=== PATIENT | male | born 1950 | race Caucasian/White ===

== ENCOUNTER 2017-07-13 18:36 | Inpatient (IN) | payer MEDICARE ==
[~2017-07-13] VITALS: Ht 182.9 cm; Wt 88.5 kg
--- OUTSIDE RECORDS SUMMARY | ~2017-07-13 | XMS | Clinical Summary ---
Demographics + + + | Address | [address] | | | [place] [address] | + + + | Home Phone | | + + + | Preferred Language | Unknown | + + + | Marital Status | Single | + + + | Sabianist Affiliation | CAT | + + + | Race | Unknown | + + + | Ethnic Group | or | + + + Author + + + | Author | [facility] | + + + | Organization | [facility] | + + + | Address | Unknown | + + + | Phone | Unavailable | + + + Support + + +---------+ + | Name | Relationship | Address | Phone | + + +---------+ + | DAX SIMS | ECON | Unknown | | + + +---------+ + Care Team Providers + +------+ + | Care Registered Nurse Maternal Child Name | Role | Phone | + +------+ + PP | Unavailable | + +------+ + Source Comments CASSIE is fully live on both [facility] and [facility] Allergies No Known Allergies Current Medications No known medications Active Problems + + + | Problem | Noted Date | + + + | Chronic hepatitis C virus infection (HCC) | 03/13/2007 | + + + + + | Overview: ICD10 | + + Social History + +-------+ +--------+------+ | Tobacco Use | Types | Packs/Day | Years | Date | | | | | Used | | + +-------+ +--------+------+ | Current Every Day | | | | | | Smoker | | | | | + +-------+ +--------+------+ + + + | Sex Assigned at | Date Recorded | | | | + + + | Not on file | | + + + Last Filed Vital Signs + + + + | Vital Sign | Reading | Time Taken | + + + + | Blood Pressure | 126/71 | 09/02/2007 10:38 AM PDT | + + + + | Pulse | 77 | 09/02/2007 10:38 AM PDT | + + + + | Temperature | 36.6 C (97.8 F) | 09/02/2007 10:38 AM PDT | + + + + | Respiratory Rate | 16 | 09/02/2007 10:38 AM PDT | + + + + | Oxygen Saturation | - | - | + + + + | Inhaled Oxygen | - | - | | Concentration | | | + + + + | Weight | 82.9 kg (182 lb 11.2 | 09/02/2007 10:38 AM PDT | | | oz) | | + + + + | Height | 180.3 cm (5' 11") | 08/29/2006 9:20 AM PDT | + + + + | Body Mass Index | 25.48 | 09/02/2007 10:38 AM PDT | + + + + Plan of Treatment + + + + + | Health Maintenance | Due Date | Last Done | Comments | + + + + + | INFLUENZA VACCINE | | | | | (FLU SHOT) | 7 | | | + + + + + Results Not on filefrom Last 3 Months
--- OUTSIDE RECORDS SUMMARY | ~2017-07-13 | XMS | Clinical Summary ---
Demographics + + + | Address | [address] | | | [place] [address] | + + + | Home Phone | | + + + | Preferred Language | Unknown | + + + | Marital Status | Single | + + + | Yazidism Affiliation | CAT | + + + [...] Team Providers + +------+ + | Care Ore Tester Name | Role | Phone | + +------+ + PP | Unavailable | + +------+ + Source Comments CASSIE is fully live on both [facility] and [facility] Allergies No Known Allergies Current Medications No [...]
--- OUTSIDE RECORDS SUMMARY | ~2017-07-13 | XMS | Clinical Summary ---
Demographics + + + | Address | [address] | | | [place] [address] | + + + | Home Phone | | + + + | Preferred Language | Unknown | + + + | Marital Status | Single | + + + | Scientologist Affiliation | CAT | + + + [...] Team Providers + +------+ + | Care Drug Enforcement Administration Agent Name | Role | Phone | + +------+ + PP | Unavailable | + +------+ + Source Comments CASSIE is fully live on both [facility] and [facility] InPatient.[facility] Allergies No Known Allergies Current Medications [...]
[~2017-07-13 18:36] MED LIST: DILTIAZEM ER240 MG PO; LISINOPRIL10 MG PO; XARELTO20 MG PO
--- NOTE | 2017-07-14 14:56 | EKG ---
[facility] [address] [facility] [facility] [place] [address] Signed Atrial flutter with 2 to 1 block Right bundle branch block Septal infarct , age undetermined T wave abnormality, consider inferior ischemia Abnormal ECG No previous ECGs available Confirmed by ALLEGRA SAMUEL MD ([id number]) on 07/14/2017 2:56:02 PM Electronically Signed By: ALLEGRA SAMUEL MD 07/14/17 1456 PATIENT NAME: BRIAN PALMER Electrocardiogram DATE OF : 50 PHYSICIAN: ALLEGRA SAMUEL MD REPORT #: [id number] REPORT IS CONFIDENTIAL AND NOT TO BE RELEASED WITHOUT AUTHORIZATION
--- NOTE | 2017-07-14 14:57 | EKG ---
[facility] [address] [place] [address] Signed Atrial flutter with 4:1 AV conduction Right bundle branch block Septal infarct (cited on or before 13-JUL-2017) T wave abnormality, consider lateral ischemia Abnormal ECG When compared with ECG of 13-JUL-2017 18:45, (Unconfirmed) Atrial flutter is in 4:1 conduction compared to 2:1 conduction in the previous EKGs. Confirmed by ALLEGRA SAMUEL MD ([id number]) on 07/14/2017 2:57:25 PM Electronically Signed By: ALLEGRA SAMUEL MD 07/14/17 1457 PATIENT NAME: BRIAN PALMER Electrocardiogram DATE OF : 50 PHYSICIAN: ALLEGRA SAMUEL MD REPORT #: [id number] REPORT IS CONFIDENTIAL AND NOT TO BE RELEASED WITHOUT AUTHORIZATION
== END 2017-07-14 00:55 | disposition short-term general hospital (02) | DRG 291 ==
LOC: ED 18:36 → CCU 22:02
PROVIDERS: ADMIT Internal Medicine
DX: I11.0 Hypertensive heart disease with heart failure (principal); R57.0 Cardiogenic shock; I48.92 Unspecified atrial flutter; I50.31 Acute diastolic (congestive) heart failure; Z87.891 Personal history of nicotine dependence; Z79.899 Other long term (current) drug therapy
CPT/HCPCS: 71045; 74177; 80053; 83735; 83880; 84484; 85025; 93005; 93010; J1265; J2405; J7030; Q9967

== ENCOUNTER 2019-07-04 10:29 | Inpatient (IN) | payer MEDICARE ==
[~2019-07-04] VITALS: Ht 182.9 cm; Wt 90.3 kg
--- OUTSIDE RECORDS SUMMARY | 2019-07-04 10:32 | XMS ---
PreManage Notification: BRIAN PALMER Security Director Patient Financial Services Events No recent Security Events currently on file CRITERIA MET - MYRTLE CARE PROVIDERS CARSON VELÁSQUEZ Internal Medicine: Cardiovascular 01/30/2018-Current [facility] Disease PHONE: [phone] Dima Cardenas MD PHONE: Unknown Josh has no Care Guidelines for this patient. EConor VISIT COUNT (12 MO.) Beatriz Paul TOTAL 1 NOTE: Visits indicate total known visits. ED/UCC VISIT TRACKING (12 MO.) 07/04/2019 10:30 EVELINA Hernandez OR TYPE: Emergency COMPLAINT: - SOB, PAIN INPATIENT VISIT TRACKING (12 MO.) No inpatient visits to display in this time frame [email or web address]
[2019-07-04] MEDS ORDERED: HYDROCODON-ACE1 EA10 PO (10:48)
[2019-07-04] MEDS ORDERED: METOPROLOL SUCC50 MG PO (10:48)
[2019-07-04] MEDS ORDERED: DICLOFENAC SODI75 MG PO (10:48)
[2019-07-04] MEDS ORDERED: ZANAFLEX4 MG PO (10:49)
[2019-07-04] MEDS ORDERED: ELIQUIS5 MG PO (10:49)
--- NOTE | 2019-07-04 14:38 | NUR ---
Pt arrived to CCU w/pint of blood infusing. Pt able to stand-up transfer w/assistance from ER bed to CCU bed, Pt reported dizziness while standing. Pt is alert/orientated. CCU intake completed. Daughter is at bedside. Pt requested jello, is on a clear liquid diet. Appeared to tolerated jello well. Guardrails are up, call light within reach, will continue to monitor.
--- NOTE | 2019-07-04 16:50 | NUR ---
PATIENT 2ND UNIT OF PRBC COMPELTED. WILL START NEXT BAG SHORTLY. PATIENT STATES "I FEEL SO MUCH BETTER AT THIS TIME". PATIENTS CHEECKS HAVE MORE PINK NOTED. PATIENTS DAUGHTER HEADED HOME AT THIS TIME. WILL CONTINUE TO CLOSELY MONITOR.
--- NOTE | 2019-07-04 16:50 | NUR ---
1 UNIT PRBC INFUSED. VSS. PT DENIES ANY S/S OF ADVERSE REACTION. RESTS IN BED. IV SITE WNL. NS INFUSED TO CLEAR LINE.
--- NOTE | 2019-07-04 17:20 | NUR ---
UNIT #3 PRBC STARTED AT 65 ML/HR. PRE VSS. IV SITE WNL. PT C/O HUNGER, CLEAR LIQUIDS ORDERED. THIS RN REMAINS WITH PT WHILE DURING BEGINNING OF PRBC INFUSION. PT DOZES AND WAKES TO TV.
--- NOTE | 2019-07-04 17:34 | NUR ---
PT SITS UP IN HIGH FOWLERS TO DRINK CLEAR LIQUIDS.
--- NOTE | 2019-07-04 17:45 | NUR ---
VSS. PT DENIES ANY S/S OF ADVERSE REACTION. IV SITE WNL. PRBC INFUSION INCREASED TO 200 ML/HR.
--- NOTE | 2019-07-04 19:15 | NUR ---
PATIENT 3RD UNIT ALMOST FINISHED INFUSING. REPORT GIVEN TO NONPROFIT DIRECTOR RN. NO OTHER NEEDS AT THIS TIME. PATIENT HAD A CLEAR LIQUID TRAY AND TOLERATED WELL. MD OLIVAREZ IN AND DISCUSSED PLAN OF CARE. WILL CONTINUE TO CLOSELY MONITOR. CALL LIGHT IN REACH.
--- NOTE | 2019-07-04 19:57 | NUR ---
THIRD BLOOD TRANSFUSION FINISHED AT 1939. V/S ARE WDL, PT HOWEVER DOES HAVE A TEMP OF 99.2 F AT THIS TIME, WILL CONTINUE TO MONITOR. ALL LOBES ARE CLEAR AT THIS TIME, PT DENIES PAIN, ABD SOUNDS ARE PRESENT, ABD IS SOFT AND NON-TENDER TO TOUCH. NO PERIPHERAL EDEMA NOTED, CAP REFILL IS < 2SEC. PT IS STILL DUE TO VOID AT THIS TIME. WILL CONTINUE TO MONITOR.
--- NOTE | 2019-07-04 20:35 | NUR ---
LAB CALLED WITH CRITICAL VALUE FOR H&H. HG 6.5, HTC 20.9 AT THIS TIME. MD ANDERSON WAS CALLED AT 2031 AND ORDERS FOR 1 UNIT OF BLOOD WAS RECEIVED. ALSO, ORDERS FOR 2 UINTS OF BLOOD AHEAD WAS RECEIVED AND 20MG IV LASIX ONCE WAS ALSO ORDERED.
--- NOTE | 2019-07-04 21:39 | NUR ---
PT AT THIS TIME IS SLEEPIG. BLOOD UNIT HAS NOT BEEN STARTED YET. V/S ARE WDL.
--- NOTE | 2019-07-05 00:30 | NUR ---
4TH UNIT OF BLOOD FINISHED AT 0009. V/S ARE WDL. ALL LOBES ARE STILL CLEAR AND PT DENIED SOB. PT HAS SOME NECK PAIN PRESENT AT THIS TIME BUT DID NOT WANT PAIN MEDICATION. NO OTHER CHANGES NOTED SO FAR. PT NPO SINCE 0000. PT NOW ON 1L O2 NC. WILL HOLD OF ON THE ORDERED 20MG IV LASIX DUE TO BP'S PER MD ANDERSON.
--- NOTE | 2019-07-05 02:05 | NUR ---
PT AT THIS TIME IS SLEEPING. NO NEW CONCERNS NOTED.
--- NOTE | 2019-07-05 04:00 | NUR ---
PT STATED THAT HE IS IN PAIN BUT REFUSED ANY PO PAIN MEDICATIONS AT THIS TIME. PT IS ALSO ON ROOM AIR AND O2 SATS ARE >95%. ABD SOUNDS ARE PRESENT BUT IT SEEMS THAT HIS ABDOMEN IS SOMEWHAT DISTENDED AND FIRMER NOW. PT HOWEVER DENIES ABD PAIN ALL TOGETHER. TEMP IS 99.2 F, BP'S ARE STILL SOFT, ALL OTHER V/S ARE WDL. WILL CONTINUE TO MONITOR.
--- NOTE | 2019-07-05 06:06 | NUR ---
PT AT THIS TIME IS STILL SLEEPING. BP'S ARE BETTER AT THIS TIME. PT IS STILL ON RA WITH O2 SATS >95%. NO NEW CONCERNS NOTED AT THIS TIME.
--- NOTE | 2019-07-05 07:30 | NUR ---
PATIENT SHIFT REPORT RECIEVED FROM MANUFACTURING ENGINEERING TECHNOLOGIST RN. PATIENT RESTING IN BED. CALL LIGHT IN REACH. PATIENT HAS BEEN NPO SINCE MIDNINGHT. WILL CONTINUE TO CLOSELY MONITOR.
--- NOTE | 2019-07-05 07:35 | EKG ---
[facility] [address] [facility] [place] [address] Signed Sinus rhythm with marked sinus arrhythmia with frequent premature ventricular complexes Right bundle branch block Abnormal ECG When compared with ECG of 13-JUL-2017 23:33, Sinus rhythm has replaced Atrial flutter Criteria for Septal infarct are no longer present Nonspecific T wave abnormality, improved in Inferior leads T wave inversion now evident in Anterior leads T wave inversion no longer evident in Lateral leads Confirmed by SIXTO ANDERSON MD ([id number]) on 07/05/2019 7:35:28 AM Electronically Signed By: SIXTO ANDERSON MD 07/05/19 0735 PATIENT NAME: BRIAN PALMER Electrocardiogram DATE OF : 50 PHYSICIAN: SIXTO ANDERSON MD REPORT #: [id number] REPORT IS CONFIDENTIAL AND NOT TO BE RELEASED WITHOUT AUTHORIZATION
--- NOTE | 2019-07-05 09:30 | NUR ---
PATIENT UPDATED ON CURRENT PLAN OF CARE. PATIENT RESTING IN BED. CONSENT FOR SURGERY ON CHART. PATIENT ASSESSMENT COMPLETED. PATIENT STATES "I FEEL MUCH BETTER AT THIS TIME, BUT HUNGRY. WILL CONTINUE TO CLOSELY MONITOR.
--- NOTE | 2019-07-05 10:00 | NUR ---
PATIENT RESTING I NBED. RASCH IN TO SEE PATIENT THIS AM. ALL QUESTIONS ANSWERED. PATIENT IS AGREEABLE TO PLAN OF CARE. WILL CONTINUE TO CLOSELY MONITOR.
--- NOTE | 2019-07-05 11:34 | NUR ---
PATIENT RESTING IN BED. FAMILY ARRIVED AND UPDATED ABOUT PLAN OF CARE. FAMILY GOING TO GO DOWN AND EAT. NO OTHER NEEDS AT THIS TIME. PATIENT CONTINUES TO DENY PAIN.
--- NOTE | 2019-07-05 12:15 | NUR ---
patient gone with surgical staff to procedure. bedding cleaned. no other needs at this time.
--- NOTE | 2019-07-05 13:12 | NUR ---
patient arrived back o ccu room 128. patient transitioned to room air and vitals sable. family at the bedside. patient denies any other needs at this time. will continue to clsoely monitor.
--- NOTE | 2019-07-05 13:15 | NUR ---
PATIENT HAD AN INCONTINENT EPISODE OF BM. PATIENT CLEANED AND NEW UNDERWEAR IN PLACE. PATIENT DENIES ANY FURTHER NEEDS AT THIS TIME. WILL CONTINUE TO CLOSELY MONITOR.
--- NOTE | 2019-07-05 15:51 | NUR ---
PATIENT ASSISTED UP TO THE BATHROOM AND BACK TO THE CHAIR. PATIENT ATE 100% OF HIS FOOD AND TOLERATED WELL. CALL LIGHT ON LAP. EDUCATED TO CALL STAFF WHEN HE NEEDS TO GET UP OR IF HE NEEDS ANY ASSISTANCE. NO OTHER NEEDS AT THIS ITME. DINNER ORDERED. WILL CONTINUE TO CATHY MONITOR.
--- NOTE | 2019-07-05 17:00 | NUR ---
PATIENT ASSISTED BACK TO BED PATIENT STOOD AND TOELRATED WELL. NO DIZZINESS NOTED. PATIENT DINNER ORDERED. NO ABD PAIN. PATIET HAD LOOSE BM NO BLOOD NOTED. LIGHT BROWN IN COLOR. WILL CONTINUE TO CLOSELY MONITOR.
--- NOTE | 2019-07-05 20:15 | NUR ---
PT TONIGHT SEEMS MUCH BETTER OVERALL. ALL LOBES ARE CLEAR, ABD IS SOFT NON-TENDER AND BOWEL SOUNDS ARE ACTIVE. NO PERIPHERAL EDEMA NOTED. V/S ARE WDL. PT DOES HAVE A SLIGHT TEMP OF 99.2 F ORAL.
--- NOTE | 2019-07-05 22:06 | NUR ---
PT IS SLEEPING AT THIS TIME. V/S ARE WDL.
--- NOTE | 2019-07-06 01:13 | NUR ---
NO CHANGES WERE NOTED WITH SECOND ASSESSMENT. PT DENIES PAIN AND SOB. NO PERIPHERAL EDEMA NOTED, V/S ARE WDL. NO NEW CONCERNS NOTED.
--- NOTE | 2019-07-06 03:27 | NUR ---
PT IS SLEEPING. NO NEW CONCERNS NOTED AT THIS TIME.
--- NOTE | 2019-07-06 04:15 | NUR ---
V/S ARE WDL, PT DENIES PAIN, ALL LOBES ARE CLEAR, NO PERIPHERAL EDEMA NOTED, ABD IS UNCHANGED. NO NEW CONCERNS NOTED.
--- NOTE | 2019-07-06 06:30 | NUR ---
V/S ARE WDL, URINE OUTPUT IS ADEQUATE. PT IS IN GOOD SPIRITS. PT DENIES PAIN. NO NEW CONCERNS NOTED
--- NOTE | 2019-07-06 07:30 | NUR ---
PATIENT SHIFT REPORT RECIEVED FROM COMPLIANCE ATTORNEY RN. PATIENT RESTING IN BED AT THIS TIME. CALL LIGHT IN REACH. WILL CONTINUE TO CLOSELY MONTIOR.
[2019-07-06] MEDS ORDERED: FERROUS SULFAT325 MG PO (09:46)
[2019-07-06] MEDS ORDERED: SUCRALFATE1 GM PO (09:47)
[2019-07-06] MEDS ORDERED: PANTOPRAZOLE SO40 MG PO (09:47)
--- NOTE | 2019-07-06 10:00 | NUR ---
PATIENT RESTING IN BED. BREAKFAST FINISHED. MD ANDERSON WILL BE IN TO SEE PATIENT. WILL CONTINUE TO CLOSELY MONITOR.
--- NOTE | 2019-07-06 11:00 | NUR ---
PATIENT OKAYED TO DISCHARGE HOME. PATIENT AND FAMILY AGREEABLE TO PLAN OF CARE. WILL WAIT FOR MD OLIVAREZ TO SEE PATIENT PRIOR TO DISCHARGE FOR HIS PLAN OF CARE TO FOLLOW-UP. PER MD ANDERSON ASSIST PATIENT UP AND WALK WITH PATIENT TO ENSURE PATIENT DOES NOT GET DIZZY WITH AMBULATION. PATIENT WALKED AROUND THE MEDICAL UNIT WITH STAFF MEMBER AND PATIENT TOLERATED WELL. PATIENT DENIED SOB AND DIZZINESS. PATIENTS DAUGHTER AGREEABLE TO PLAB OF CARE. WILL CONTINUE TO CLSOELY MONITOR.
--- NOTE | 2019-07-06 12:00 | NUR ---
MD OLIVAREZ IN AND SEEN PATIENT. PATIENT WILL CALL TOMORROW TO MAKE A FOLLOW-UP IN ABOUT A MONTH. WILL FINISH PAPERWORK AND SEND PATIENT HOME WITH HIS DAUGHTER.
[2019-07-06] MEDS ORDERED: ATORVASTATIN CA80 MG PO (12:01)
[2019-07-06] MEDS ORDERED: ENTRESTO 49 MG1 EACH PO (12:03)
--- NOTE | 2019-07-06 12:30 | NUR ---
REVIEWED DISCHARGE INSTRUCTIONS WITH PATIENT AND HIS DAUGHTER DAX. INSTRUCTED TO CALL SUNDAY TO MAKE FOLLOW-UP APPOINTMENTS. PATIENT NEEDS TO CONTACT HIS [facility] MD AND FOLLOW-UP REGUARDING HIS UPCOMING PROCEDURE AND WHEN TO RESTART BLOOD THINNERS. CONTACT HIS PRIMARY MD TO FOLLOW-UP REGUARDING HIS CURRENT HOSPITALIZATION. ALSO, CONTACT MD [place] OFFICE TO SCHEDULE FOLLOW-UP IN 1 MONTH. PER MD MONICA PROVIDE PATIENT WITH CASE MANAGEMENT NUMBER TO HELP ARRANGE A NEW PRIMARY CARE PHYSICAIAN PER FAMILIES REQUEST TO HAVE AN MD IN OUR COMMUNITY. DCD PATIENTS IVS. ALL BELONGINGS SENT WITH PATIENT. ALL QUESTIONS ANSWERED. NO OTHER NEEDS AT SI TIME. PATIENT TAKEN TO THE FRONT ENTRANCE VIA WHEELCHAIR BY RICH BLEVINS.
--- NOTE | 2019-07-07 09:22 | CONS ---
[facility] [address] [place], [place] [address] Signed DATE OF CONSULTATION: 07/04/2019 CONSULTING PHYSICIANS: 1. Dr. Isaac. 2. Dr. Singletary. 3. Dr. Kirit Olivarez. PROBLEM: Profound anemia, heme-positive stool. HISTORY OF PRESENT ILLNESS: This 69-year-old white man is a patient of Dr. Payne in the [facility], though he lives in [place]. He was seen in the emergency room at approximately 10:[address] Bryant Shaw and admitted by Dr. Isaac having been found to have shortness of breath that has been chronic and recently associated dizziness and weakness. He was found to have profound anemia with a hematocrit of only 16.1 with a hemoglobin of 4.6. His platelet count is normal at 215,000. He was admitted for further evaluation and care on the basis of probable gastrointestinal bleeding. Notably, the patient has had no gross blood per rectum or hematemesis. He denies hematuria as well. The patient was recently started on nonsteroidal medication including diclofenac. He takes additionally hydrocodone, Tylenol, Zanaflex, and Eliquis. He also takes metoprolol daily as well as Entresto, bupropion, and atorvastatin as well as spironolactone and digoxin. He has no known drug allergies. The patient is considered to have systolic heart failure as well though has high functioning generally speaking. He does have a history of supraventricular tachycardia and atrial fibrillation, though he presents in normal sinus rhythm at this time. Chronic neck pain is the reason for his pain medications. SOCIAL HISTORY: He is unmarried. He does have a female acquaintance, however. REVIEW OF SYSTEMS: He denies any chest pain or shortness of breath. He has had no dysphagia or dysuria. Denies family history of colon cancer, stomach cancer, or esophageal cancer. Notably, Electronically Signed By: KIRIT OLIVAREZ MD 07/07/19 0922 PATIENT NAME: BRIAN PALMER CONSULTATION DATE OF : 50 REPORT #: [id number] PHYSICIAN: KIRIT OLIVAREZ MD PCP: SURJIT XIE REPORT IS CONFIDENTIAL AND NOT TO BE RELEASED WITHOUT AUTHORIZATION [facility] [address] [place], [place] [address] Signed he has never undergone colonoscopy. He is not known to have history of ulcer. PHYSICAL EXAMINATION: GENERAL: This is a pleasant white man, who is sedate in his overall demeanor. VITAL SIGNS: His temperature is 98, pulse 68, blood pressure 124/53, and O2 saturation is 100% on 2 L nasal cannula oxygen. NECK: Shows no thyromegaly or cervical adenopathy. Trachea is midline. CHEST: Clear. There is no wheeze or rhonchi. HEART: Regular without murmur. ABDOMEN: Obese, but soft and nontender. EXTREMITIES: Show no clubbing, cyanosis, or edema. CURRENT LABORATORY STUDIES: Show white count of 12.8, hematocrit of 16.1, now undergoing transfusion, and a platelet count of 215,000. Coag studies show a proTime of 16.3 with an INR of 1.3, D-dimer of 419 (unreliable based on Entresto medication), and a PTT of 37.3. Urinalysis is pending. His creatinine is elevated at 1.32. Iron is 21, ferritin 4.83. BNP is 1290. Troponin is less than 0.01. ASSESSMENT: The patient has anemia that is likely chronic to get as low as it has been with relatively minor symptoms. This may represent a slow gastrointestinal bleed including peptic disease or alternatively a colonic source. I have discussed with him these possibilities and recommendation of evaluation to include upper endoscopy. This would be undertaken under sedation. He is on significant anticoagulation with Eliquis and with diclofenac as an additional medication he may have peptic disease with slow bleeding. He showed no overt evidence of bleeding, including no hematemesis or blood per rectum. He has no family history of gastric or esophageal or colonic cancer. Would recommend upper endoscopy tomorrow after transfusion has been more fully initiated. If upper endoscopy is entirely negative, then consideration would be for bowel prep and colonoscopy. The risks of bleeding, infection, perforation, and failure to identify source of bleeding was reviewed with him. He understands and wished to proceed. MD NO Torrez/MODL Electronically Signed By: KIRIT OLIVAREZ MD 07/07/19 0922 PATIENT NAME: BRIAN PALMER CONSULTATION DATE OF : 50 REPORT #: [id number] PHYSICIAN: KIRIT OLIVAREZ MD PCP: SURJIT XIE REPORT IS CONFIDENTIAL AND NOT TO BE RELEASED WITHOUT AUTHORIZATION [address] [address] Signed /[id number] cc: MD Rula Cohen MD Copies: CAROL ISAAC CYNTHIA MD ~ Electronically Signed By: KIRIT OLIVAREZ MD 07/07/19921 PATIENT NAME: BRIAN PALMER CONSULTATION DATE OF : 50 REPORT #: [id number] PHYSICIAN: KIRIT OLIVAREZ MD PCP: SURJIT XIE REPORT IS CONFIDENTIAL AND NOT TO BE RELEASED WITHOUT AUTHORIZATION
--- NOTE | 2019-07-07 09:22 | OR ---
[facility] [address], [place] [address] Signed DATE OF OPERATION: 07/05/2019 SURGEON: Kirit Olivarez MD PREOPERATIVE DIAGNOSIS: Profound anemia (hematocrit 15 with chronic anticoagulation with Eliquis and recent diclofenac use). POSTOPERATIVE DIAGNOSIS: Multiple duodenal erosions and ulcerations. CLOtest negative at 30 minutes postprocedure. PROCEDURE: Esophagogastroduodenoscopy with biopsy. ANESTHESIA: Intravenous sedation, propofol infusion, Moody Lee CRNA. INDICATION: This 69-year-old white man is a patient of Dr. Isaac and subsequently Dr. Singletary of the hospitalist service at [facility]. Generally, a patient of Dr. Massye of the [facility]. He was admitted yesterday on July 04, 2019, with shortness of breath, lightheadedness, and findings of a hematocrit of only 15. He has undergone transfusion therapy. He has had no hematemesis or known blood per rectum, though he does test heme-positive on stool testing. He has been fluid resuscitated given transfusion therapy and is now to undergo upper endoscopy. The risks of bleeding, infection, and perforation were reviewed with him. He understands and wished to proceed. Of special note, he is on Eliquis and recently was placed on diclofenac. He has been off the Eliquis for at least 24 hours. PROCEDURE FINDINGS: The patient had a normal esophagus and stomach, though marked abnormality of the 2nd portion of the duodenum with duodenal erosions and ulcers, all of which were healing but which almost certainly accounts for his anemia. CLOtest biopsy is negative thus far. Final test is pending. DESCRIPTION OF PROCEDURE: The patient was brought to the endoscopy suite and placed in lateral decubitus position given intravenous sedation with propofol infusional technique by the personnel recruiter. A bite block was placed. An Olympus video upper endoscope was passed in the hypopharynx. Electronically Signed By: KIRIT OLIVAREZ MD 07/07/19 0922 PATIENT NAME: BRIAN PALMER OPERATIVE REPORT DATE OF : 50 REPORT #: [id number] PHYSICIAN: KIRIT OLIVAREZ MD PCP: SURJIT XIE REPORT IS CONFIDENTIAL AND NOT TO BE RELEASED WITHOUT AUTHORIZATION [facility] [address], [place] [address] Signed The vocal cords appeared normal. Scope was advanced into the esophagus. The esophagus was normal. Scope was passed to the stomach. Rugal folds appeared normal. There was no sign of blood or clot or even bile within the stomach. The pylorus was normal and scope was passed through into the duodenum where immediately noted were several duodenal erosions and ulcerations. At 1st, it appeared the ulcerations are related to neoplasm. Ultimately, this was found less likely. Narrow band imaging confirmed ulcerations and erosions. One of the employee representative lesions was biopsied. Careful withdrawal of scope through the bulbar portion showed channel ulceration as well. The scope was withdrawn through the antrum and biopsies taken of the antrum for both REZA and pathologic testing. Retroflexed view showed no proximal abnormality particularly. The scope was straightened and withdrawn from the distal esophagus, which was normal. Photographs were taken throughout. The patient was then taken to recovery room in good condition having suffered no complication. CONCLUDING DIAGNOSIS: Anemia, likely related to chronic gastrointestinal bleeding from duodenal erosions and ulcerations. No evidence of Helicobacter pylori thus far. PLAN: Sucralfate as well as PPI medication will be prescribed. Avoidance of Eliquis for the time being would be appropriate at least from a gastrointestinal standpoint and absolute abstinence from nonsteroidal medication and smoking. MD NO Torrez/MODL /[id number] cc: Dr. Massey [place], [place] MD Rula Cohen MD Electronically Signed By: KIRIT OLIVAREZ MD 07/07/19921 PATIENT NAME: BRIAN PALMER OPERATIVE REPORT DATE OF : 50 REPORT #: [id number] PHYSICIAN: KIRIT OLIVAREZ MD PCP: SURJIT XIE REPORT IS CONFIDENTIAL AND NOT TO BE RELEASED WITHOUT AUTHORIZATION [facility] [address], [place] [address] Signed Copies: CAROL ISAAC CYNTHIA MD ~ Electronically Signed By: KIRIT OLIVAREZ MD 07/07/19921 PATIENT NAME: BRIAN PALMER OPERATIVE REPORT DATE OF : 50 REPORT #: [id number] PHYSICIAN: KIRIT OLIVAREZ MD PCP: SURJIT XIE REPORT IS CONFIDENTIAL AND NOT TO BE RELEASED WITHOUT AUTHORIZATION
--- NOTE | 2019-07-07 09:48 | NUR ---
PT DAUGHTER CALLED REQUESTING HELP GETTING HER DAD INTO A LOCAL PCP. SHE SAID [facility] WOULD BE OK. I CALLED PT HAS AND APPT WITH QI LOPEZ FOR Sunday07/14/19 AT 11 AM FOR HOSPITAL FOLLOW UP. THEN HE WAS ALREADY ESTABLISHED WITH DR CATALAN SO AN APPT FOR JULY 23 @ 6585 WAS MADE. I CALLED PT DAUGHTER DAX CHAVES BACK AT [phone] AND GAVE HER THESE APPT TIMES. 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
--- NOTE | 2019-07-10 09:24 | PATH ---
[facility] [address], [place] [address] Signed SPECIMEN(S): A DUODENUM, SECOND SPECIMEN(S): B ANTRUM/PYLORUS SPECIMEN SOURCE: A. DUODENUM, SECOND B. ANTRUM/PYLORUS CLINICAL HISTORY: Anemia. Post: Duodenal ulcers. Rule out duodenal ulcerated lesion. MICROSCOPIC DESCRIPTION: Histologic sections of all submitted blocks are examined by light microscopy. These findings, together with the gross examination, support the pathologic diagnosis. FINAL PATHOLOGIC DIAGNOSIS: A. Duodenum, second portion, biopsy: - Focally active duodenitis and changes consistent with peptic duodenitis. - Negative for mucosal ulceration. - Negative for dysplasia or malignancy. B. Stomach, antrum, biopsy: - Antral mucosa with active gastritis. - Suspicious for Helicobacter organisms, see Comment. - Negative for dysplasia or malignancy. COMMENT: An immunohistochemical stain (with appropriately staining controls) for H. pylori was performed on the antral biopsy (B) and shows a single area of positivity, which is suspicious, but not definitive, for a Helicobacter organism. No definitive Helicobcater organisms are seen on HE stain. Correlation with microbiological studies and REZA test is recommended. As part of [email or web address]' Quality Improvement Program, this case was reviewed by another member of our pathology staff. NAL:cml:C2NR GROSS DESCRIPTION: Two specimens are received in two containers, labeled "RP." A. The specimen, labeled "RP, #1," and designated on the requisition "duodenum biopsy," is received in formalin and consists of one gross soft tissue fragment that measures 0.3 cm in greatest dimension. The specimen is entirely submitted in cassette (A1). B. The specimen, labeled "RP, #2," and designated on the requisition PATIENT NAME: BRIAN PALMER PATHOLOGY DATE OF : 50 REPORT #: [id number] PHYSICIAN: ARNALDO PATHOLOGY PCP: LUIS ALBERTO CATALAN MD REPORT IS CONFIDENTIAL AND NOT TO BE RELEASED WITHOUT AUTHORIZATION [facility] [address], [place] [address] Signed "antrum/pylorus biopsy," is received in formalin and consists of two gross soft tissue fragment(s) that measure 0.3 and 0.4 cm in greatest dimension. The specimen is entirely submitted in cassette (B1). FB (under the direct supervision of a pathologist) The Gross Description was prepared using a voice recognition system. The report was reviewed for accuracy; however, sound-alike word errors, addition and/or deletions may occur. If there is any question about this report, please contact Client Services. ADDITIONAL NOTES: Immunohistochemical and/or in situ hybridization studies were performed on this case with the appropriate positive controls that react as expected. This test was developed and its performance characteristics determined by [email or web address]. It has not been cleared or approved by the U.S. Food and Drug Administration. The FDA has determined that such clearance or approval is not necessary. This test is used for clinical purposes. It should not be regarded as investigational or for research. [email or web address] is certified under the Clinical Laboratory Improvement Amendments of 1988 (CLIA) as qualified to perform high complexity clinical laboratory testing. PERFORMING LABORATORY: The technical component was performed by [email or web address], [address] [place] [id number] (X Ray Operator: Mell Eastman MD; CLIA# [id number]). Professional interpretation was performed by [email or web address], [facility], [address] [address] (IA# [id number]). Diagnostician: Yudy Valencia MD Pathologist Electronically Signed 07/10/2019 Copies: ~ PATIENT NAME: BRIAN PALMER PATHOLOGY DATE OF : 50 REPORT #: [id number] PHYSICIAN: ARNALDO OROZCO PCP: LUIS ALBERTO CATALAN MD REPORT IS CONFIDENTIAL AND NOT TO BE RELEASED WITHOUT AUTHORIZATION
== END 2019-07-06 12:24 | disposition home or self-care (01) | DRG 378 ==
LOC: ED 10:29 → CCU 10:31
PROVIDERS: Surgery; ADMIT Student in an Organized Health Care Education/Training Program
PROC: 30233N1 Transfusion of Nonautologous Red Blood Cells into Peripheral Vein, Percutaneous Approach (ICD-10-PCS; 2019-07-04)
PROC: 0DB68ZX Excision of Stomach, Via Natural or Artificial Opening Endoscopic, Diagnostic (ICD-10-PCS; 2019-07-05)
PROC: 0DB98ZX Excision of Duodenum, Via Natural or Artificial Opening Endoscopic, Diagnostic (ICD-10-PCS; principal; 2019-07-05 12:39)
DX: K26.4 Chronic or unspecified duodenal ulcer with hemorrhage (principal); D62 Acute posthemorrhagic anemia; I50.32 Chronic diastolic (congestive) heart failure; I47.1 Supraventricular tachycardia; I25.10 Atherosclerotic heart disease of native coronary artery without angina pectoris; I11.0 Hypertensive heart disease with heart failure; I48.91 Unspecified atrial fibrillation; M54.2 Cervicalgia; G89.29 Other chronic pain; F17.210 Nicotine dependence, cigarettes, uncomplicated; Z79.01 Long term (current) use of anticoagulants; Z79.1 Long term (current) use of non-steroidal anti-inflammatories (NSAID); Z79.891 Long term (current) use of opiate analgesic; Z79.899 Other long term (current) drug therapy
CPT/HCPCS: 36415; 71046; 80048; 80053; 82728; 83540; 83735; 83880; 84484; 85014; 85018; 85025; 85379; 85610; 85730; 86850; 86900; 86901; 86920; 88305; 88342; 93005; 93010; 99285-25; C9113; J2001; J2405; J2704; P9016

== ENCOUNTER 2022-09-13 06:52 | Day surgery (SDC) | payer MEDICARE ==
[2022-09-06 08:17] VITALS: BP 107/70
[~2022-09-13] VITALS: Ht 182.9 cm; Wt 90.9 kg
[~2022-09-13 06:52] MED LIST changes: +ATORVASTATIN CA80 MG PO; +DICLOFENAC SODI75 MG PO; +ELIQUIS5 MG PO; +ENTRESTO 49 MG1 EACH PO; +FERROUS SULFAT325 MG PO; +HYDROCODON-ACE1 EA10 PO; +METOPROLOL SUCC50 MG PO; +PANTOPRAZOLE SO40 MG PO; +SUCRALFATE1 GM PO; +ZANAFLEX4 MG PO
[2022-09-13 07:12] VITALS: BP 133/78
[2022-09-13] MEDS ORDERED: METOPROLOL SUCC25 MG PO (07:14)
--- NOTE | 2022-09-13 08:44 | NUR ---
09/13/22 0844 Kelli De Santiago 0840 PATIENT ARRIVES TO PACU UNRESPONSIVE TO VERBAL STIMULI. RESP EVEN AND UNLABORED. O2 SAT >95% ON ROOM AIR.
[2022-09-13 09:18] VITALS: BP 142/49
--- NOTE | 2022-09-13 11:10 | OR ---
[facility] [address], [place] [address] Signed DATE OF OPERATION: 09/13/2022 SURGEON: Gurpreet Taveras MD PREOPERATIVE DIAGNOSIS: Screening. POSTOPERATIVE DIAGNOSES: 1. 4 mm polyps x2 at 7 cm in rectum. 2. Minimal to moderate right and left-sided diverticulosis. PROCEDURE: Colonoscopy with hot biopsy. ESTIMATED BLOOD LOSS: None. INDICATIONS: Brian is a 72-year-old gentleman, asked to see me for his initial screening colonoscopy. He has no lower GI complaints. There is no family history of colon cancer or polyps. In the office, I gave him a pamphlet on colonoscopy. He understands the nature of the test. There is risk including, but not limited to gas bloating, crampy abdominal pain, bleeding, perforation requiring surgery, and missed diagnosis. In addition, he does use alcohol and marijuana on a regular basis. He has a history of heart failure along with atrial fibrillation. In the office, we thought he was in atrial fibrillation, but today on the EKG, it looks like he is in sinus rhythm with premature ventricular contractions. In that regard, we asked for monitored anesthesia care with propofol infusion. He had expressed understanding and wished to proceed. In reviewing his preop lab work, we can see the hemoglobin is fine at 16, but his mean cell volume is elevated at 108. Platelet count is good at 234. His BUN is good at 14 and his creatinine is good at 1.26. His AST is good at 20. His albumin is good at 3.7. PROCEDURE NOTE: Brian was taken into our endoscopy suite and placed in the left lateral decubitus position. He was given monitored anesthesia care with propofol infusion per our nurse supervisor mill. A digital rectal exam was performed. He has good sphincter tone. Really not any external hemorrhoids. His prostate is moderately enlarged and indurated. The adult colonoscope was introduced and advanced all around into the cecum under direct visualization of the camera without difficulty. His prep was good. We could easily see the appendiceal orifice and ileocecal valve. The scope was then slowly withdrawn. We Electronically Signed By: GURPREET TAVERAS MD 09/13/22 1110 PATIENT NAME: BRIAN PALMER OPERATIVE REPORT DATE OF : 50 REPORT #: [id number] PHYSICIAN: GURPREET TAVERAS MD PCP: HAM RUIZ PAC REPORT IS CONFIDENTIAL AND NOT TO BE RELEASED WITHOUT AUTHORIZATION [facility] [address], [place] [address] Signed took pictures throughout for photodocumentation. We found several moderate sized diverticula in the proximal right colon. He also has several diverticula in the sigmoid colon. He had just two tiny polyps in the rectum at 7 cm. They were easily removed with the help of hot biopsy forceps. Upon retroflexion of the scope, he really has very little in the way of internal hemorrhoid tissue and internal anal skin tags. After this, the gas was suctioned out and the colonoscope removed. Brian tolerated the procedure quite well. RECOMMENDATIONS: I will see Brian back in my office in 7 to 14 days to review his results. Gurpreet Taveras MD ALB/MODL /[id number] cc: RICHARD Herrera MD Copies: GURPREET TAVERAS MD ~ Electronically Signed By: GURPREET TAVERAS MD 09/13/22 1110 PATIENT NAME: BRIAN PALMER OPERATIVE REPORT DATE OF : 50 REPORT #: [id number] PHYSICIAN: GURPREET TAVERAS MD PCP: HAM RUIZ PAC REPORT IS CONFIDENTIAL AND NOT TO BE RELEASED WITHOUT AUTHORIZATION
== END 2022-09-13 09:30 | disposition home or self-care (01) ==
LOC: OPS 06:52 → DS 06:52 → OPS 08:15
PROVIDERS: ATTEND Colon & Rectal Surgery
PROC: 0DBP8ZZ Excision of Rectum, Via Natural or Artificial Opening Endoscopic (ICD-10-PCS; principal; 2022-09-13 08:15)
DX: Z12.11 Encounter for screening for malignant neoplasm of colon (principal); K62.1 Rectal polyp; K57.30 Diverticulosis of large intestine without perforation or abscess without bleeding; F17.200 Nicotine dependence, unspecified, uncomplicated; E78.5 Hyperlipidemia, unspecified; I48.91 Unspecified atrial fibrillation; K27.9 Peptic ulcer, site unspecified, unspecified as acute or chronic, without hemorrhage or perforation; I25.10 Atherosclerotic heart disease of native coronary artery without angina pectoris; I50.9 Heart failure, unspecified; I11.0 Hypertensive heart disease with heart failure; F10.99 Alcohol use, unspecified with unspecified alcohol-induced disorder; Z88.8 Allergy status to other drugs, medicaments and biological substances; Z79.01 Long term (current) use of anticoagulants; K63.5 Polyp of colon
CPT/HCPCS: 00811; J2704; J7121

== ENCOUNTER 2024-10-27 09:53 | Emergency (ER) | payer MEDICARE ==
[~2024-10-27] VITALS: Ht 182.9 cm; Wt 98.2 kg
[~2024-10-27 09:53] MED LIST changes: +METOPROLOL SUCC25 MG PO
[2024-10-27 10:40] LABS: BASOPHILS 0.6 % (0.2-1.2); EOSINOPHILS 1.7 % (0.8-7.0); HEMOGLOBIN 14.7 g/dL (13.7-17.5); LYMPHOCYTES 15.3 % (21.8-53.1); MCH 38.2 PG (25.7-32.2); MCV 109.1 fL (79.0-92.2); MONOCYTES 10.9 % (5.3-12.2); NEUTROPHILS 70.4 % (34.0-67.9); PLATELET COUNT 171 K/uL (163-337); RBC 3.85 M/uL (4.63-6.08)
[2024-10-27 11:01] LABS: ALBUMIN 3.1 g/dL (3.4-5.0); ALBUMIN/GLOBULIN RATIO 0.89 (1.1-2.4); ALCOHOL, MEDICAL <3 ng/dL (<3); ALKALINE PHOSPHATASE 79 U/L (46-116); ALT (SGPT) 40 U/L (14-59); ANION GAP 12.8 (7-21); AST (SGOT) 24 U/L (15-37); BUN/CREATININE RATIO 17.96 (6.0-28.6); CALCIUM 8.7 mg/dL (8.5-10.1); CARBON DIOXIDE 27 mmol/L (21-32); CHLORIDE 103 mmol/L (98-107); CREATININE, SERUM 1.28 mg/dL (0.70-1.30); GLOMERULAR FILTRATION RATE,EST 59 mL/min (>60); POTASSIUM 4.8 mmol/L (3.5-5.1); PROTEIN, TOTAL 6.6 g/dL (6.4-8.2); UREA NITROGEN 23 mg/dL (7-18)
--- OUTSIDE RECORDS SUMMARY | 2024-10-27 11:30 | XMS ---
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 Harry VISIT COUNT (12 MO.) 1 EVELINA Paul TOTAL 1 NOTE: Visits indicate total known visits. ED/UCC VISIT TRACKING (12 MO.) 10/27/2024 09:[address] [facility] OR TYPE: Emergency COMPLAINT: - LT HIP PAIN INPATIENT VISIT TRACKING (12 MO.) No inpatient visits to display in this time frame [email or web address]
[2024-10-27 11:49] VITALS: BP 117/56
--- NOTE | 2024-10-27 19:36 | EKG ---
[facility] [address] [facility] [place] [address] Signed Sinus bradycardia Right bundle branch block Septal infarct , age undetermined Abnormal ECG When compared with ECG of 06-SEP-2022 07:24, premature ventricular complexes are no longer present Septal infarct is now present T wave inversion more evident in Anterior leads Nonspecific T wave abnormality no longer evident in Lateral leads Confirmed by Raphael Valencia DO ([id number]) on 10/27/2024 7:36:36 PM Electronically Signed By: RAPHAEL VALENCIA DO 10/27/241935 PATIENT NAME: BRIAN PALMER Electrocardiogram DATE OF : 50 PHYSICIAN: RAPHAEL VALENCIA DO REPORT #: [id number] REPORT IS CONFIDENTIAL AND NOT TO BE RELEASED WITHOUT AUTHORIZATION
== END 2024-10-27 13:19 | disposition home or self-care (01) ==
LOC: ED 09:53
PROVIDERS: Emergency Medicine
DX: T67.5XXA Heat exhaustion, unspecified, initial encounter (principal); L55.9 Sunburn, unspecified; R53.1 Weakness; I10 Essential (primary) hypertension; F17.200 Nicotine dependence, unspecified, uncomplicated; Z79.899 Other long term (current) drug therapy; Z88.8 Allergy status to other drugs, medicaments and biological substances
CPT/HCPCS: 36415; 70450; 72170; 80053; 83880; 84484; 85025; 93005; 93010; 99285-25; G0480

== ENCOUNTER 2024-12-08 05:35 | Inpatient (IN) | payer MEDICARE ==
[~2024-12-08] VITALS: Ht 182.9 cm; Wt 95.0 kg
[2024-12-08] VITALS (12 sets, daily range): BP systolic 111–151; BP diastolic 44–72
[~2024-12-08 05:35] MED LIST changes: +AMIODARONE HCL200 MG PO; +CALCIUM500 MG PO; +LACTATED RINGER'S 1,000 ML IV SCH; +MAGNESIUM400 MG PO; -METOPROLOL SUCC25 MG PO; +VITAMIN B121000 MCG PO
[2024-12-08] MEDS ORDERED: GABAPENTIN 600 MG TAB PO SCH (07:00)
[2024-12-08] MEDS ORDERED: PANTOPRAZOLE SODIUM 40 MG TABEC PO SCH (07:00)
[2024-12-08] MEDS ORDERED: OXYCODONE HCL 5 MG TAB PO SCH (07:00)
[2024-12-08] MEDS ORDERED: INTRA-ARTICULAR ANALGESIC INJECTION XX SCH (07:00)
[2024-12-08] MEDS ORDERED: LIDOCAINE HCL 1% 5 ML SDV INJ ONE (07:00)
[2024-12-08] MEDS ORDERED: CEFAZOLIN SODIUM 2 GM/20 ML SYR IV SCH ×2 (07:00→14:00)
[2024-12-08] MEDS ORDERED: TRANEXAMIC ACID IN NACL,ISO-OS 1,000 MG/100 ML PIGGYBACK IV SCH ×2 (07:00→10:00)
[2024-12-08] MEDS ORDERED: IBLOOD GLUCOSE TEST STRIP 1 EA TEST VI PRN ×2 (07:00→11:00)
[2024-12-08] MEDS ORDERED: BUPIVACAINE 0.75% IN DEXTROSE 2 ML AMP ONE (07:33)
[2024-12-08] MEDS ORDERED: LIDOCAINE HCL 2% 5 ML SDV ONE (07:33)
[2024-12-08] MEDS ORDERED: fentaNYL citrate 100 MCG/2 ML VIAL ONE (07:33)
[2024-12-08] MEDS ORDERED: KETOROLAC TROMETHAMINE 30 MG/ML VIAL IV PRN (08:45)
[2024-12-08] MEDS ORDERED: OXYCODONE HCL 5 MG TAB PO PRN (08:45)
[2024-12-08] MEDS ORDERED: ASPIRIN 325 MG TAB PO SCH (09:00)
[2024-12-08] MEDS ORDERED: LACTATED RINGER'S 1,000 ML IV ONE (09:59)
[2024-12-08] MEDS ORDERED: KETOROLAC TROMETHAMINE 30 MG/ML VIAL ONE (10:36)
[2024-12-08] MEDS ORDERED: CEFUROXIME250 MG PO (10:49)
[2024-12-08] MEDS ORDERED: ACETAMINOPHEN500 MG PO (10:49)
[2024-12-08] MEDS ORDERED: GABAPENTIN100 MG PO (10:50)
[2024-12-08] MEDS ORDERED: OXYCODONE HCL5 M1 PO (10:51)
[2024-12-08] MEDS ORDERED: fentaNYL citrate 50 MCG/ML SDV IV PRN (11:00)
[2024-12-08] MEDS ORDERED: NALOXONE HCL 0.4 MG SYR IV PRN (11:00)
[2024-12-08] MEDS ORDERED: ACETAMINOPHEN 500 MG TAB PO SCH (15:00)
[2024-12-08] MEDS ORDERED: GABAPENTIN 300 MG CAP PO SCH (15:00)
--- NOTE | 2024-12-08 15:28 | OR ---
[facility] [address] [place], [place] [address] Signed DATE OF OPERATION: 12/08/2024 SURGEON: Angel Rodrigues MD PREOPERATIVE DIAGNOSIS: Severe degenerative joint disease, right hip. POSTOPERATIVE DIAGNOSIS: Severe degenerative joint disease, right hip. PROCEDURE PERFORMED: Right total hip arthroplasty with Varun. CHEMICAL TECHNICIAN: None. ANESTHESIA: General. BLOOD LOSS: 175 mL. IMPLANTS: [employer]in Secur-Fit advanced size 7 56 mm cup and -2.5 head. BRIEF HISTORY: Brian is a 74-year-old gentleman with pain and stiffness in his hip. Radiographs were consistent with severe arthritis. Risks, benefits, and alternatives were discussed with him. He elected to proceed. DESCRIPTION OF PROCEDURE: Once consent was obtained, he was taken to the operating room after adequate anesthesia was placed on the operating room table in the left lateral decubitus position. All downside pressure points were well padded. The right hip was prepped and draped in the standard sterile fashion. The computer navigation array was then placed in the posterior aspect of the iliac crest three fingerbreadths posterior to the ASIS. This was done through separate stab incisions. The hip was then approached through standard anterolateral approach, carried through skin and subcutaneous tissue. The IT band was divided longitudinally. The vastus lateralis was divided from the tip of the trochanter distally along the anterior margin of the femur. This was then subperiosteally elevated Electronically Signed By: ANGEL RODRIGUES MD 12/08/24 1528 PATIENT NAME: BRIAN PALMER OPERATIVE REPORT DATE OF : 50 REPORT #: [id number] PHYSICIAN: ANGEL RODRIGUES MD PCP: HAM RUIZ PAC REPORT IS CONFIDENTIAL AND NOT TO BE RELEASED WITHOUT AUTHORIZATION [facility] [address] [place], [place] [address] Signed around to the level of the lesser trochanter. The gluteus minimus and capsule were split from the tip of the trochanter to the acetabular rim and peeled off the anterior neck. The superior capsule was released in the saddle. The femur was then registered with the computer and the hip was dislocated. The femoral neck cut was made one fingerbreadth above the lesser trochanter. The femoral head was passed off. The periarticular soft tissue was removed from around the acetabulum. The acetabulum was then registered with the computer. The robot was brought in and the acetabulum was reamed at 23 degrees of anteversion, 40 degrees of abduction, 45 degrees of abduction. The bone was quite hard during this part of the procedure. The reamer was then removed. Any remaining soft tissue was removed and the acetabular cup was impacted using the robot until it was well-seated with good stability. The acetabular liner was then impacted until it was securely attached. Attention was then turned to the proximal femur, which was opened using the iloho cutter, followed by the Gina awl. The lateralized reamer was then used to open up the lateral side. It was then sequentially broached up to a 7 with a 7 found to be well fitting. This was left in position. A high offset neck and -2.5 head were placed. The hip was then reduced. Leg lengths were found to be equal by examination and computer. The hip had good range of motion with excellent stability. The hip was then dislocated. The trials were removed. The final stem was impacted to the same level as the broach and the -2.5 ceramic head was impacted. This was done after cleaning the trunnion. The hip was then reduced again, taken through range of motion and was found to be good. The wound was then irrigated with one bottle of Surgiphor, which was allowed to sit for 5 minutes. This was then irrigated with normal saline. The capsule was then closed using #2 FiberWire. The periarticular soft tissues were injected with 80 mL ropivacaine Toradol mixture. The vastus and IT band layers were closed independently using #2 Stratafix. The subcutaneous tissue with 0 Stratafix and the skin with 3-0 Stratafix. Wound was sealed with LiquiBand and Steri-Strips and the computer array was removed and those wounds were cleansed and closed. The patient was awakened, taken to the recovery room in satisfactory condition. All sponge, needle, and instrument counts were correct. Angel Rodrigues MD BA/MODL /[id number] Electronically Signed By: ANGEL RODRIGUES MD 12/08/24 1528 PATIENT NAME: BRIAN PALMER OPERATIVE REPORT DATE OF : 50 REPORT #: [id number] PHYSICIAN: ANGEL RODRIGUES MD PCP: HAM RUIZ PAC REPORT IS CONFIDENTIAL AND NOT TO BE RELEASED WITHOUT AUTHORIZATION [address] [address] Signed Copies: ~ Electronically Signed By: ANGEL RODRIGUES MD 12/08/24 1528 PATIENT NAME: BRIAN PALMER OPERATIVE REPORT DATE OF : 50 REPORT #: [id number] PHYSICIAN: ANGEL RODRIGUES MD PCP: HAM RUIZ PAC REPORT IS CONFIDENTIAL AND NOT TO BE RELEASED WITHOUT AUTHORIZATION
[2024-12-08] MEDS ORDERED: ATORVASTATIN 40 MG TAB PO SCH (21:00)
[2024-12-08] MEDS ORDERED: SENNOSIDES 1 TAB PO SCH (21:00)
[2024-12-08] MEDS ORDERED: APIXABAN 5 MG TAB PO SCH (21:00)
[2024-12-09] VITALS (11 sets, daily range): BP systolic 107–146; BP diastolic 51–65
[2024-12-09] MEDS ORDERED: FERROUS SULFATE 325 MG TAB PO SCH (08:00)
[2024-12-09] MEDS ORDERED: CELECOXIB 200 MG CAP PO SCH (08:00)
[2024-12-09] MEDS ORDERED: CYANOCOBALAMIN 1,000 MCG TAB PO SCH (09:00)
[2024-12-09] MEDS ORDERED: METOPROLOL SUCCINATE 25 MG TABCR PO SCH (09:00)
[2024-12-09] MEDS ORDERED: TAMSULOSIN HCL 0.4 MG CAP PO SCH (09:00)
[2024-12-09] MEDS ORDERED: CALCIUM OYSTER SHELL PO SCH (09:00)
[2024-12-09] MEDS ORDERED: MAGNESIUM OXIDE 400 MG TABLET PO SCH (09:00)
[2024-12-09] MEDS ORDERED: AMIODARONE HCL 200 MG TAB PO SCH ×2 (09:00→10:00)
[2024-12-09] MEDS ORDERED: APIXABAN 5 MG TAB PO SCH (10:00)
[2024-12-09] MEDS ORDERED: METOPROLOL SUCCINATE 50 MG TABCR PO SCH (10:00)
[2024-12-09] MEDS ORDERED: SODIUM CHLORIDE 0.9% 1,000 ML IV SCH (17:00)
[2024-12-10] VITALS (11 sets, daily range): BP systolic 102–153; BP diastolic 55–97
[2024-12-11] VITALS (7 sets, daily range): BP systolic 105–128; BP diastolic 63–67
[2024-12-12] VITALS (9 sets, daily range): BP systolic 103–137; BP diastolic 53–75
[2024-12-13] VITALS (10 sets, daily range): BP systolic 122–146; BP diastolic 56–64
[2024-12-14] VITALS (9 sets, daily range): BP systolic 111–142; BP diastolic 68–85
[2024-12-14] MEDS ORDERED: GABAPENTIN 100 MG CAP PO SCH (21:00)
[2024-12-15 05:01] VITALS: BP 118/55
[2024-12-15 05:02] VITALS: BP 118/55
[2024-12-15 09:22] VITALS: BP 128/58
[2024-12-15 10:07] VITALS: BP 128/58
[2024-12-15] MEDS ORDERED: OXYCODONE HCL5 M1 PO (11:57)
[2024-12-15 13:38] VITALS: BP 134/57
[2024-12-15 14:20] VITALS: BP 134/57
== END 2024-12-15 13:47 | DRG 470 ==
LOC: MS 05:35 → DS 05:35 → MS 17:30 → DS 12-10 07:44 → MS 12-10 13:47
PROVIDERS: ADMIT Specialist; ATTEND Specialist
PROC: 0SR903Z Replacement of Right Hip Joint with Ceramic Synthetic Substitute, Open Approach (ICD-10-PCS; principal; 2024-12-08 08:00)
DX: M16.11 Unilateral primary osteoarthritis, right hip (principal); I48.92 Unspecified atrial flutter; Z88.8 Allergy status to other drugs, medicaments and biological substances; D50.9 Iron deficiency anemia, unspecified; E78.00 Pure hypercholesterolemia, unspecified; I50.9 Heart failure, unspecified; I11.0 Hypertensive heart disease with heart failure; Z79.899 Other long term (current) drug therapy; Z79.01 Long term (current) use of anticoagulants; R33.9 Retention of urine, unspecified
CPT/HCPCS: 01214; 51702; 51798; 72170; 94762; 96374; 96415; 97110; 97116; 97161; 97166; 97530; 97535; A9270; C1713; C1776; J0690; J1885; J2003; J2405; J2704; J3010; J7030; J7121